=== PATIENT | female | born 1965 | race Caucasian/White ===

== ENCOUNTER → 2017-01-18 | Outpatient (CLI) | payer OTHER ==
[~2017-01-18] MED LIST: ANUSOL SUPP1 SUPP PR; ASPIRIN PO; ASPIRIN81 M1 PO; ATORVASTATIN CA10 MG PO; BACTRIM DS TABL1 TAB PO; CELEXA PO; CHEWABLE ASPIRI81 MG PO; COLACE PO; CYMBALTA PO; DEPAKOTE ER PO; DIAZEPAM PO; DOC-Q-LACE100 MG PO; DOK100 MG PO; ESCITALOPRAM OX10 MG PO; GENOPTIC5 ML OP; GLUCOPHAGE XR500 MG PO; HYDROCODONE/APA1 T15 PO; IRON PO; K-DUR20 ME2 PO; KCL PO; KEPPRA750 M1 PO; KEPPRA750 MG PO; LANTUS100 U/ML; LASIX PO; LASIX20 MG PO; LEVETIRACETAM PO; LISINOPRIL PO; LISINOPRIL5 MG PO; LITHIUM CARBON300 M1 PO; LOC PO; LOPRESSOR PO; LORTAB 10/500 T1 TAB PO; METFORMIN HCL500 M1 PO; METFORMIN PO; MEVACOR40 MG PO; MIRALAX17 G1 PO; NORVASC; NORVASC PO; NOVOLOG100 U/ML SUBQ; OMEPRAZOLE20 M1 PO; OXYMORPHONE HCL PO; PREMARIN PO; PRILOSEC PO; PRILOSEC20 MG PO; RISPERDAL2 MG PO; SERTRALINE HCL50 MG PO; TOPAMAX PO; TRAZODONE HCL100 MG PO; VOLTAREN75 MG PO; ZOVIRAX PO; [UNRECOGNIZED DRUG - REMARK]
[2017-01-18 14:07] LABS: HEMATOCRIT 41.2 % (35.0-45.0); MEAN CELL VOLUME 82.7 FL (83-96); MEAN CORPUSCULAR HEMOGLOBIN 26.1 PG (28-34); MEAN CORPUSCULAR HGB CONC 31.5 g/dL (30-36); MEAN PLATELET VOLUME 8.8 FL (6.5-11.5); RED BLOOD COUNT 4.99 X10e (3.90-5.30); RED CELL DISTRIBUTION WIDTH 13.4 % (11.0-15.5); WHITE BLOOD COUNT 11.5 X10e3 (4.0-10.5)
[2017-01-18 14:38] LABS: ALBUMIN SERUM 4.3 g/dL (3.5-5.0); BILIRUBIN,TOTAL 0.6 mg/dL (0.2-2.0); BUN/CREATININE RATIO 16.25; CALCIUM SERUM 9.2 mg/dL (8.4-10.2); CREATININE SERUM 0.8 mg/dL (0.6-1.4); GLOM FILT RATE Estimated 86.6 mL/min (>60); POTASSIUM 3.8 mmol/L (3.5-5.1); PROTEIN TOTAL SERUM 8.6 g/dL (6.0-8.3)
== END | disposition home or self-care (01) ==
LOC: CLAB 13:25
PROVIDERS: Internal Medicine
DX: R11.2 Nausea with vomiting, unspecified (principal)
CPT/HCPCS: 36415; 80053; 82150; 83690; 85027

== ENCOUNTER → 2017-01-23 | Outpatient (CLI) | payer OTHER ==
--- NOTE | ~2017-01-23 | CT2 ---
[facility] A Service of [facility] RADIOLOGY TEXT RESULTS PATIENT: AMPARO GLYNN LOCATION: [facility] : 69 UNIT #: [id number] AGE: [address]: Sp Sheets MD SEX: F ORDER DR: [id number] [facility] [address] [place], [place] [address] [id number] O MR#: [id number] Acc #: [id number] NAME: AMPARO GLYNN : 1965 SEX: F STUDY DATE/TIME: 01/23/2017 12:51 UNIT: [facility] ROOM: STUDY DESCRIPTION: CT Abd and Pelv W Cont Attending Physician: Sp Sheets M.D. Referring Physician: Sp Sheets M.D. Ordering Physician: Sp Sheets M.D. Primary Care Physician: Jorge Camarena MEDICAL IMAGING REPORT This report is preliminary unless electronic signature is present EXAM CT abdomen and pelvis with contrast INDICATION Epigastric abdominal pain, nausea. Intermittent bouts of diarrhea and constipation for the past 2 years. PROCEDURE Contrast-enhanced CT of the abdomen and pelvis. This CT exam was performed with one or more of the following radiation dose reduction techniques: automatic exposure control, adjustment of mA and/or kV according to patient size, and iterative reconstruction. COMPARISON 12/29/2013 FINDINGS ABDOMEN WITH CONTRAST: Lung bases are clear. Liver measures 20.4 cm in length. Hepatic steatosis. The spleen, kidneys, adrenal glands, pancreas, gallbladder unremarkable. The bowel loops are nondilated. Appendix is normal. PELVIS WITH CONTRAST: Previous hysterectomy. No pelvic mass or fluid. No aggressive appearing bone lesion. IMPRESSION 1. No acute findings. 2. Hepatomegaly with significant steatosis. Dictated by... Reji Flores M.D. [facility] A Service [facility] RADIOLOGY TEXT RESULTS PATIENT: AMPAR[facility] GL[facility]NN [facility] UN[facility] #: [id number] AGE: [address]: Sp Sheets MD SEX: F ORDER DR: THIS IS AN ELECTRONICALLY VERIFIED REPORT Reji Flores M.D. at 01/24/2017 2:29 PM Jeet TD: 01/23/2017 20:58 JOB #: [id number] MEDICAL IMAGING REPORT Page 1 of 1 COPY
== END | disposition home or self-care (01) ==
LOC: CCAT 07:40
DX: R10.9 Unspecified abdominal pain (principal); K76.0 Fatty (change of) liver, not elsewhere classified
CPT/HCPCS: 74177; Q9967

== ENCOUNTER 2017-01-27 01:10 | Emergency (ER) | payer OTHER ==
[~2017-01-27 01:10] MED LIST changes: -ESCITALOPRAM OX10 MG PO
[2017-01-30] MEDS ORDERED: ESCITALOPRAM OX10 MG PO (16:21)
[2017-01-30] MEDS ORDERED: PRILOSEC PO (16:21)
[2017-01-30] MEDS ORDERED: KEPPRA750 M1 PO (16:21)
== END 2017-01-27 02:40 | disposition home or self-care (01) ==
LOC: CED 01:10
DX: Z53.21 Procedure and treatment not carried out due to patient leaving prior to being seen by health care provider (principal)